=== PATIENT | male | born 1940 | race Caucasian/White ===

== ENCOUNTER 2017-07-25 17:24 | Emergency (ER) | payer OTHER, MEDICARE ==
[2017-07-25] MEDS ORDERED: LET GEL TOPICAL 1 EA SYR TP ONE (17:37)
[2017-07-25 18:25] LABS: % IMMATURE GRANULYOCYTES 0.1 % (0.0-1.1); ABSOLUTE IMMATURE GRANULOCYTES 0.01 10^3/uL (0.00-0.10); ADD DIFF? NO; ADD MORPH? NO; ADD SCAN? NO; ATYPICAL LYMPHOCYTE FLAG 0 (0-99); FRAGMENT RBC FLAG 0 (0-99); HEMATOCRIT 42.4 % (40.0-51.0); HEMOGLOBIN 15.1 g/dL (13.7-17.5); LEFT SHIFT FLG 0 (0-99); LIPEMIA HEMOLYSIS FLAG 90 (0-99); MEAN CELL HEMOGLOBIN 34.2 pg (27.9-34.1); MEAN CELL HEMOGLOBIN CONCENTR. 35.6 g/dL (32.4-36.7); MEAN CELL VOLUME 95.9 fL (81.5-99.8); MEAN PLATELET VOLUME 9.5 fL (8.7-11.7); PLATELET CLUMPS FLAG 0 (0-99); PLATELET COUNT 133 10^3/uL (150-400); RED BLOOD CELL COUNT 4.42 10^6/uL (4.40-6.38); RED CELL DISTRIBUTION WIDTH 13.2 % (11.5-15.2)
[2017-07-25 18:36] LABS: INR 1.04 (0.83-1.16); PROTIME(PATIENT) 13.3 SEC (12.0-15.0)
[2017-07-25 18:37] LABS: APTT 29.2 SEC (23.0-38.0)
[2017-07-25 18:39] LABS: ALANINE AMINOTRANSFERASE 45 IU/L (21-72); ALBUMIN 3.9 g/dL (3.5-5.0); ALKALINE PHOSPHATASE 96 IU/L (38-126); ANION GAP 14 mEq/L (8-16); ASPARTATE AMINOTRANSFERASE 39 IU/L (17-59); BILIRUBIN,TOTAL 1.2 mg/dL (0.1-1.4); CALCIUM 9.4 mg/dL (8.5-10.4); CARBON DIOXIDE 24 mEq/l (22-31); CHLORIDE 105 mEq/L (97-110); CREATININE 1.1 mg/dL (0.7-1.3); GLOMERULAR FILTRATION RATE > 60; GLUCOSE 160 mg/dL (70-100); POTASSIUM 4.1 mEq/L (3.5-5.2); SODIUM 143 mEq/L (134-144); TOTAL PROTEIN 6.7 g/dL (6.3-8.2)
[2017-07-25] MEDS ORDERED: VANCOMYCIN 2 GM in NS 500 ML IV ONE (18:53)
[2017-07-25 19:03] VITALS: RESP 16; O2SAT 93
--- NOTE | 2017-07-25 21:22 | EDPHY ---
H & P Stated Complaint: reddness to the rt lower leg Time Seen by Provider: 07/25/17 17:37 HPI/ROS: 76-year-old male presents complaining of redness to his right lower leg. He injured it approximately 10 days ago and it seemed to be improving /healing and then suddenly today became red swollen and painful at the edges of the wound. 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 No eye redness, no sore throat Respiratory no cough, no shortness of breath Cardiac no chest pain, no peripheral edema GI no abdominal pain, no diarrhea, no constipation, no nausea, no vomiting no flank pain, no hematuria, no dysuria Musculoskeletal no myalgias, no joint pain Heme no easy bruising, no easy bleeding Endo no polyuria, no polydipsia Skin positive rashes, no pruritus Neuro no syncope, no dizziness, no headaches Psych is no suicidal ideation, no homicidal ideation Source: Patient, Family Exam Limitations: No limitations - Personal History Current Tetanus/Diphtheria Vaccine: Unsure - Medical/Surgical History Hx Asthma: No Hx Chronic Respiratory Disease: No Hx Diabetes: Yes Hx Cardiac Disease: No Hx Renal Disease: No Hx Cirrhosis: No Hx Alcoholism: No Hx HIV/AIDS: No Hx Splenectomy or Spleen Trauma: No Other PMH: pre diabetes. htn. PE w blood thinner tx. gout. Gerd - Family History Significant Family History: No pertinent family hx - Social History Smoking Status: Former smoker Alcohol Use: None Drug Use: None - Physical Exam Exam: 76-year-old male alert and oriented no acute distress nontoxic appearance afebrile HEENT atraumatic normocephalic, extraocular muscles intact, anicteric Oropharynx negative for erythema negative exudate, tolerating her own secretions Neck supple no meningismus Lungs clear to auscultation bilaterally Heart regular rate and rhythm without murmur rub or gallop Abdomen nondistended normoactive bowel sounds soft nontender Back no CVA tenderness, no step-offs, no spinal tenderness Extremities no cyanosis clubbing or edema Except right lower extremity Mild calf swelling-calf nontender Anterior lower right extremity along hernandez 10 cm jagged healing deep abrasion versus possible laceration, with adjacent erythema and induration No crepitus, no purulent discharge no foul odor no vesicles Neuro alert and oriented, no focal deficits Constitutional: Initial Vital Signs Temperature (C) 37.6 C 07/25/17 17:27 Heart Rate 88 07/25/17 17:27 Respiratory Rate 18 07/25/17 17:27 Blood Pressure 152/73 H 07/25/17 17:27 O2 Sat (%) 96 07/25/17 17:27 O2 Delivery Mode Room Air Allergies/Adverse Reactions: No Known Allergies Allergy (Unverified 12/04/14 19:42) Home Medications: Medication Instructions Recorded Allopurinol [Allopurinol 300 MG 300 mg PO DAILY 01/02/15 (RX)] Atenolol [Tenormin 25 mg (*)] 25 mg PO Q2D 01/02/15 Esomeprazole Mag Trihydrate 40 mg PO DAILY 01/02/15 [Nexium] Lisinopril/Hydrochlorothiazide 1 tab PO DAILY 01/02/15 [Lisinopril-Hctz 10-12.5 mg Tab] Multivitamins [Multivitamin (OTC)] 1 tab PO DAILY 01/02/15 Rivaroxaban [Xarelto] 20 mg PO DAILY 01/02/15 oxyCODONE IR [Oxycodone Ir (*)] 5 - 15 mg PO Q3 PRN #70 tab 01/29/15 Amoxicillin/Clavulanate Pot 875 mg PO BID #20 tab 07/25/17 [Augmentin 875 MG TAB (*)] Doxycycline Hyclate [Vibramycin 100 mg PO BID #20 cap 07/25/17 100 MG (*)] Medical Decision Making - Diagnostics Imaging Results: Imaging Impressions Extremity Venous Study 07/25/17 18:07 Impression: 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 Results called and discussed with Evelina Castañeda MD at 07/25/2017 22:13. Tibia/Fibula X-Ray 07/25/17 18:09 Impression: Soft tissue swelling anterior to the diaphysis of the tibia without evidence for acute osseous abnormality. ED Course/Re-evaluation: Patient seen and evaluated for right lower extremity rash and calf swelling Differential diagnosis considered Calf DVT, cellulitis, wound infection, healing wound with cellulitis, necrotizing fasciitis, sepsis Labs Lactate normal CBC within normal limits Ultrasound No popliteal or calf DVT Thickened wall of femoral vessel, no occlusive DVT Physical exam consistent with wound infection/cellulitis Impression Wound infection/cellulitis Plan Vancomycin 2 g IV piggyback Home on Augmentin and doxycycline Follow-up with PCP - Data Points Laboratory Results: Laboratory Results 07/25/17 18:17 07/25/17 18:17 17 07/25/17 07/25/17 18:17 18:17 18:17 WBC 7.78 10^3/uL 10^3/uL (3.80-9.50) RBC 4.42 10^6/uL 10^6/uL (4.40-6.38) Hgb 15.1 g/dL g/dL (13.7-17.5) Hct 42.4 % % (40.0-51.0) MCV 95.9 fL fL (81.5-99.8) MCH 34.2 pg H pg (27.9-34.1) MCHC 35.6 g/dL g/dL (32.4-36.7) RDW 13.2 % % (11.5-15.2) Plt Count 133 10^3/uL L 10^3/uL (150-400) MPV 9.5 fL fL (8.7-11.7) Neut % (Auto) 65.7 % % (39.3-74.2) Lymph % (Auto) 18.8 % % (15.0-45.0) [place] % (Auto) 9.8 % % (4.5-13.0) Eos % (Auto) 5.0 % % (0.6-7.6) Baso % (Auto) 0.6 % % (0.3-1.7) Nucleat RBC Rel Count 0.0 % % (0.0-0.2) Absolute Neuts (auto) 5.11 10^3/uL 10^3/uL (1.70-6.50) Absolute Lymphs (auto) 1.46 10^3/uL 10^3/uL (1.00-3.00) Absolute Monos (auto) 0.76 10^3/uL 10^3/uL (0.30-0.80) Absolute Eos (auto) 0.39 10^3/uL 10^3/uL (0.03-0.40) Absolute Basos (auto) 0.05 10^3/uL 10^3/uL (0.02-0.10) Absolute Nucleated RBC 0.00 10^3/uL 10^3/uL (0-0.01) Immature Gran % 0.1 % % (0.0-1.1) Immature Gran # 0.01 10^3/uL 10^3/uL (0.00-0.10) PT 13.3 SEC SEC (12.0-15.0) INR 1.04 (0.83-1.16) APTT 29.2 SEC SEC (23.0-38.0) VBG Lactic Acid Sodium 143 mEq/L mEq/L (134-144) Potassium 4.1 mEq/L mEq/L (3.5-5.2) Chloride 105 mEq/L mEq/L (97-110) Carbon Dioxide 24 mEq/l mEq/l (22-31) Anion Gap 14 mEq/L mEq/L (8-16) BUN 22 mg/dL mg/dL (7-23) Creatinine 1.1 mg/dL mg/dL (0.7-1.3) Estimated GFR > 60 Glucose 160 mg/dL H mg/dL (70-100) Calcium 9.4 mg/dL mg/dL (8.5-10.4) Total Bilirubin 1.2 mg/dL mg/dL (0.1-1.4) AST 39 IU/L IU/L (17-59) ALT 45 IU/L IU/L (21-72) Alkaline Phosphatase 96 IU/L IU/L (38-126) Total Protein 6.7 g/dL g/dL (6.3-8.2) Albumin 3.9 g/dL g/dL (3.5-5.0) 07/25/17 18:17 WBC RBC Hgb Hct MCV MCH MCHC RDW Plt Count MPV Neut % (Auto) Lymph % (Auto) [place] % (Auto) Eos % (Auto) Baso % (Auto) Nucleat RBC Rel Count Absolute Neuts (auto) Absolute Lymphs (auto) Absolute Monos (auto) Absolute Eos (auto) Absolute Basos (auto) Absolute Nucleated RBC Immature Gran % Immature Gran # PT INR APTT VBG Lactic Acid 1.8 mmol/L mmol/L (0.7-2.1) Sodium Potassium Chloride Carbon Dioxide Anion Gap BUN Creatinine Estimated GFR Glucose Calcium Total Bilirubin AST ALT Alkaline Phosphatase Total Protein Albumin Medications Given: Discontinued Medications Vancomycin HCl 2 gm/ Sodium (Chloride) 500 mls @ 250 mls/hr IV EDNOW ONE PRN Reason: Protocol Stop: 07/25/17 20:52 Last Admin: 07/25/17 19:17 Dose: 500 mls Departure - Departure Disposition: Home, Routine, Self-Care Clinical Impression: Cellulitis, Traumatic open wound of right lower leg with infection Condition: Good Instructions: Cellulitis (ED) Referrals: Hugh Martinez MD [Primary Care Provider] - As per Instructions Prescriptions: Amoxicillin/Clavulanate Pot [Augmentin 875 MG TAB (*)] 875 mg PO BID #20 tab Doxycycline Hyclate [Vibramycin 100 MG (*)] 100 mg PO BID #20 cap
[2017-07-25 22:13] VITALS: BP 159/88; PULSE 66; TEMP 98.6
== END 2017-07-25 22:35 | disposition home or self-care (01) ==
LOC: CED 17:24
DX: S81.801A Unspecified open wound, right lower leg, initial encounter (principal); X58.XXXA Exposure to other specified factors, initial encounter; I82.891 Chronic embolism and thrombosis of other specified veins; L03.115 Cellulitis of right lower limb; I10 Essential (primary) hypertension; Z87.891 Personal history of nicotine dependence
CPT/HCPCS: 73590; 93971; 96374; 99285; J3370; 80053-PO; 83605-PO; 85025-PO; 85610-PO; 85730-PO

== ENCOUNTER → 2017-09-19 | Outpatient (CLI) | payer OTHER, MEDICARE | LOC: BMCIMAGING 10:00 | PROVIDERS: ATTEND Emergency Medicine | DX: R07.0 Pain in throat (principal) ==

== ENCOUNTER → 2018-05-13 | Outpatient (CLI) | payer OTHER, MEDICARE | LOC: FIMAGING 08:10 | PROVIDERS: ATTEND Internal Medicine | DX: I70.0 Atherosclerosis of aorta (principal); K76.0 Fatty (change of) liver, not elsewhere classified ==

== ENCOUNTER → 2018-05-16 | Outpatient (CLI) | payer OTHER, MEDICARE | LOC: FIMAGING 19:08 | PROVIDERS: ATTEND Internal Medicine | DX: M51.36 Other intervertebral disc degeneration, lumbar region (principal); M47.896 Other spondylosis, lumbar region; M48.061 Spinal stenosis, lumbar region without neurogenic claudication; M99.73 Connective tissue and disc stenosis of intervertebral foramina of lumbar region ==

== ENCOUNTER 2018-11-18 22:17 | Emergency (ER) | payer OTHER, MEDICARE ==
--- NOTE | 2018-11-18 22:35 | CPEKG ---
Test Reason : OPEN Blood Pressure : / mmHG Vent. Rate : 075 BPM Atrial Rate : 074 BPM P-R Int : 185 ms QRS Dur : 098 ms QT Int : 381 ms P-R-T Axes : 051 -17 012 degrees QTc Int : 426 ms Sinus rhythm Inferior infarct, old Confirmed by Evelina Castañeda ([id number]) on 11/18/2018 10:35:01 PM Referred By: Confirmed By:Evelina Castañeda
--- NOTE | 2018-11-18 22:58 | EDPHY ---
H & P Stated Complaint: CP, high blood pressure. Time Seen by Provider: 11/18/18 22:23 HPI/ROS: CHIEF COMPLAINT: Hypertension HISTORY OF PRESENT ILLNESS: Patient is a 78-year-old man with a history of hypertension. He states that his blood pressures typically around 160/90. He takes lisinopril. They have been tracking his blood pressures to follow up with his primary doctor Hugh Jones. They noticed today that his blood pressure got up to 180 systolic. They decided to come to the ER. He is otherwise asymptomatic. No headache. No weakness. No chest pain. No shortness of breath. He does report intermittent episodes of GERD over the last several months. He has been seen by GI and had upper endoscopy they have not been able to find a cause. He has some improvement with antacids. No recent fevers or illness. No trauma. He also reports negative previous cardiac workups. Severity: Moderate Modifying factors: None REVIEW OF SYSTEMS: Constitutional: denies: chills, fever, recent illness, recent injury EENTM: denies: blurred vision, double vision, nose congestion Respiratory: denies: cough, shortness of breath Cardiac: denies: chest pain, irregular heart rate, lightheadedness, palpitations Gastrointestinal/Abdominal: See HPI denies: abdominal pain, diarrhea, nausea, vomiting, blood streaked stools Genitourinary: denies: dysuria, frequency, hematuria, pain Musculoskeletal: denies: joint pain, muscle pain Skin: denies: lesions, rash, jaundice, bruising Neurological: denies: headache, numbness, paresthesia, tingling, dizziness, weakness Hematologic/Lymphatic: denies: blood clots, easy bleeding, easy bruising Immunologic/allergic: denies: HIV/AIDS, transplant 10 systems reviewed and negative except as noted EXAM: GENERAL: Well-appearing, well-nourished and in no acute distress. HEAD: Atraumatic, normocephalic. EYES: Pupils equal round and reactive to light, extraocular movements intact, sclera anicteric, conjunctiva are normal. ENT: TMs normal, nares patent, oropharynx clear without exudates. Moist mucous membranes. NECK: Normal range of motion, supple without lymphadenopathy or JVD. LUNGS: Breath sounds clear to auscultation bilaterally and equal. No wheezes rales or rhonchi. HEART: Regular rate and rhythm without murmurs, rubs or gallops. ABDOMEN: Soft, nontender, normoactive bowel sounds. No guarding, no rebound. No masses appreciated. BACK: No CVA tenderness, no spinal tenderness, step-offs or deformities EXTREMITIES: Normal range of motion, no pitting or edema. No clubbing or cyanosis. NEUROLOGICAL: Cranial nerves II through XII grossly intact. Normal speech, normal gait. 5/5 strength, normal movement in all extremities, normal sensation , normal reflexes PSYCH: Normal mood, normal affect. SKIN: Warm, dry, normal turgor, no visible rashes or lesions. Source: Patient, Family Exam Limitations: No limitations - Personal History Current Tetanus/Diphtheria Vaccine: Yes Current Tetanus Diphtheria and Acellular Pertussis (TDAP): Yes - Medical/Surgical History Hx Asthma: No Hx Chronic Respiratory Disease: No Hx Diabetes: Yes Hx Cardiac Disease: No Hx Renal Disease: No Hx Cirrhosis: No Hx Alcoholism: No Hx HIV/AIDS: No Hx Splenectomy or Spleen Trauma: No Other PMH: pre diabetes. htn. DVT w blood thinner tx. gout. Gerd - Family History Significant Family History: No pertinent family hx - Social History Smoking Status: Former smoker Alcohol Use: Sober Drug Use: None Constitutional: Initial Vital Signs Heart Rate 78 11/18/18 22:23 Respiratory Rate 18 11/18/18 22:23 Blood Pressure 177/94 H 11/18/18 22:23 O2 Sat (%) 95 11/18/18 22:23 O2 Delivery Mode Room Air Allergies/Adverse Reactions: No Known Allergies Allergy (Unverified 12/04/14 19:42) Home Medications: Medication Instructions Recorded Allopurinol [Allopurinol 300 MG 300 mg PO DAILY 01/02/15 (RX)] Atenolol [Tenormin 25 mg (*)] 25 mg PO Q2D 01/02/15 Lisinopril/Hydrochlorothiazide 1 tab PO DAILY 01/02/15 [Lisinopril-Hctz 10-12.5 mg Tab] Aspirin 81mg (*) 11/18/18 Atorvastatin Calcium 11/18/18 Pantoprazole Sodium 11/18/18 Medical Decision Making - Diagnostics EKG Interpretation: An EKG obtained and was read and documented in trace view. Please see trace view for full reading and report. Sinus rhythm no acute ischemic changes ED Course/Re-evaluation: The patient is asymptomatic. His hypertension has resolved spontaneously. In the room now it is 139/70 which he states that is actually lower than usual. Does not feel lightheaded. No chest pain. No shortness of breath. No nausea vomiting. No diaphoresis. No fatigue. No recent illness. We discussed monitoring his blood pressure for trans and following up with his primary as previously requested. EKG and lab work was done by nursing triage protocol. The EKG is unremarkable. Patient does not wish to have further testing or observation. He feels comfortable going home. We discussed indications for returning. Other lab work is been canceled. Differential Diagnosis: Partial list of the Differential diagnosis considered include but were not limited to; [] and although unlikely based on the history and physical exam, I also considered []. I discussed these differential diagnoses and the plan with the [patient] as well as the usual and expected course. The [patient understands] that the diagnosis is provisional and that in medicine we are not always correct and that further workup is often warranted. Usual and customary warnings were given. All of the [patient's] questions were answered. The [ patient was] instructed to return to the emergency department should the symptoms at all worsen or return, otherwise to followup with the physician as we discussed. - Data Points Point of Care Test Results: Chemistry 11/18/18 11/18/18 22:46 22:43 POC Sodium 141 mEq/L mEq/L (135-145) POC Potassium 3.5 mEq/L mEq/L (3.3-5.0) POC Chloride 103 mEq/L mEq/L (97-110) POC BUN 18 mg/dL mg/dL (7-23) POC Creatinine 1.1 mg/dL mg/dL (0.7-1.3) POC Glucose 167 mg/dL H mg/dL (70-100) POC Troponin I 0.01 ng/mL ng/mL (0.00-0.08) ISTAT H&H 11/18/18 22:46 POC Hgb 16.3 gm/dL gm/dL (13.7-17.5) POC Hct 48 % % (40-51) Departure - Departure Disposition: Home, Routine, Self-Care Clinical Impression: Hypertension Qualifiers: Hypertension type: essential hypertension Qualified Code(s): I10 - Essential ( primary) hypertension Condition: Fair Instructions: Hypertension (ED) Referrals: Hugh Martinez MD [[facility] [place] Primary Care Provider] - 1 day, if not improved
[2018-11-18 23:06] VITALS: BP 120/71
== END 2018-11-18 23:12 | disposition home or self-care (01) ==
LOC: CED 22:17
DX: I10 Essential (primary) hypertension (principal)
CPT/HCPCS: 82435-PO; 82565-PO; 82947-PO; 84132-PO; 84295-PO; 84484-PO; 84520-PO; 85014-PO

== ENCOUNTER → 2019-03-27 | Outpatient (CLI) | payer OTHER, MEDICARE | LOC: EMCIMAGING 08:10 | PROVIDERS: ATTEND Internal Medicine | DX: I25.10 Atherosclerotic heart disease of native coronary artery without angina pectoris (principal) | CPT/HCPCS: 71250-PN ==

== ENCOUNTER → 2019-05-04 | Outpatient (CLI) | payer OTHER, MEDICARE | LOC: BMCIMAGING 15:46 ==

== ENCOUNTER → 2019-05-22 | Outpatient (CLI) | payer OTHER, MEDICARE | LOC: BMCIMAGING 10:06 ==